=== PATIENT | female | born 1945 | race Caucasian/White ===

== ENCOUNTER 2017-10-25 06:22 | Day surgery (SDC) | payer MEDICARE, OTHER, MEDICAID ==
[2017-10-25] MEDS ORDERED: FENTAnyl 50 MCG/ML VIAL (08:15)
[2017-10-25] MEDS ORDERED: MIDAZOLAM 1 MG/ML 2 ML INJ (08:15)
[2017-10-25] MEDS ORDERED: PROPOFOL 40 ML (15:21)
== END 2017-10-25 16:29 | disposition home or self-care (01) ==
LOC: GIL 06:22
DX: K63.5 Polyp of colon (principal); K57.30 Diverticulosis of large intestine without perforation or abscess without bleeding; K64.8 Other hemorrhoids
CPT/HCPCS: 45380; 88305